=== PATIENT | female | born 1960 | race Caucasian/White ===

== ENCOUNTER 2016-06-16 08:18 | Emergency (ER) | payer BC, OTHER ==
[2016-06-16 08:30] VITALS: BP 132/74; PULSE 87; TEMP 98.2; BMI 32.6
[2016-06-16] MEDS ORDERED: CYCLOBENZAPRINE HCL 10 MG TABLET (FP) PO ONE (09:18)
[2016-06-16] MEDS ORDERED: KETOROLAC TROMETHAMINE 60 MG/2 ML VIAL IM ONE (09:18)
[2016-06-16 09:20] LABS: URINE APPEARANCE CLEAR; URINE BILIRUBIN NEGATIVE (NEGATIVE); URINE BLOOD NEGATIVE (NEGATIVE); URINE COLOR YELLOW; URINE GLUCOSE (UA) NEGATIVE (NEGATIVE); URINE KETONE NEGATIVE (NEGATIVE); URINE LEUK ESTERASE NEGATIVE (NEGATIVE); URINE NITRITE NEGATIVE (NEGATIVE); URINE PROTEIN NEGATIVE (NEGATIVE); URINE UROBILINOGEN NEGATIVE E.U./dl (0.2-1.0)
--- NOTE | 2016-06-16 09:23 | PDOC ---
History of Present Illness - General Chief Complaint: Back Pain Stated Complaint: BACK PAIN Time Seen by Provider: 06/16/16 08:40 History Source: Patient Exam Limitations: No Limitations - History of Present Illness Initial Comments: 06/16/16 09:19 Patient states started a jog routine last weekend, with acute onset of pain in her low back the following day. States pain radiates across lower back and buttocks area. Denies any fall, any other changes however states jog for one half hour. Denies numbness or tingling to hand, no fevers, no problems with bowel or bladder. Used ibuprofen only for pain relief Occurred: reports: last week Severity: reports: mild, moderate Pain Location: reports: back Method of Injury: Yes: other Past History - Travel Traveled outside of the country in the last 30 days: No Close contact w/someone who was outside of country & ill: No - Past Medical History Allergies/Adverse Reactions: Allergies Allergy/AdvReac Type Severity Reaction Status Date / Time No Known Allergies Allergy Verified 06/16/16 08:30 Home Medications: Ambulatory Orders Cyclobenzaprine HCl [Flexeril 10 mg] 10 mg PO BID PRN #14 tablet 06/16/16 Anemia: No Asthma: No Cancer: No Cardiac Disorders: No CVA: No COPD: No CHF: No Dementia: No Diabetes: No GI Disorders: No Disorders: No HTN: No Hypercholesterolemia: Yes Liver Disease: No Seizures: No Thyroid Disease: No - Surgical History Abdominal Surgery: No Appendectomy: No Cardiac Surgery: No Cholecystectomy: No Lung Surgery: No Neurologic Surgery: No Orthopedic Surgery: No - Psycho/Social/Smoking Cessation Hx Anxiety: No Suicidal Ideation: No Smoking History: Never smoked Have you smoked in the past 12 months: No Information on smoking cessation initiated: No Hx Alcohol Use: No Drug/Substance Use Hx: No Substance Use Type: None Trauma Specific PMHX - Complaint Specific PMHX Back Injury: Yes Neck Injury: No Review of Systems - Review of Systems Able to Perform ROS?: Yes Is the patient limited Swedish proficient: Yes Constitutional: Yes: Symptoms Reported, See HPI, Malaise. No: Fever HEENTM: No: Symptoms Reported Respiratory: No: Symptoms reported Musculoskeletal: Yes: Symptoms Reported, See HPI, Back Pain, Muscle Pain ( gluteus bilateral) Integumentary: No: Symptoms Reported All Other Systems: Reviewed and Negative *Physical Exam - Vital Signs Last Vital Signs Temp Pulse Resp BP Pulse Ox 98.2 F 87 18 132/74 98 06/16/16 08:29 06/16/16 08:29 06/16/16 08:29 06/16/16 08:29 06/16/16 08:29 - Physical Exam General Appearance: Yes: Nourished, Appropriately Dressed, Apparent Distress HEENT: positive: MIO, Normal ENT Inspection, TMs Normal, Pharynx Normal Neck: positive: Supple Respiratory/Chest: positive: Lungs Clear, Normal Breath Sounds Musculoskeletal: positive: Normal Inspection, Decreased Range of Motion (mild decreased range of motion, bending at waist reproduces pain in gluteus muscles, mild spasm noted to the paravertebral lumbar spinous area. No bone tenderness, and ambulatory but slowly. Neurovascular intact to feet bilaterally). negative : CVA Tenderness, Vertebral Tenderness Extremity: positive: Normal Capillary Refill, Normal Inspection Integumentary: positive: Normal Color, Dry, Warm Progress Note - Progress Note Progress Note: Low back strain, will treat with NSAIDs and cyclobenzaprine *DC/Admit/Observation/Transfer Diagnosis at time of Disposition: Strain of lumbar region Qualifiers: Encounter type: initial encounter Qualified Code(s): S39.012A - Strain of muscle, fascia and tendon of lower back, initial encounter - Discharge Dispostion Disposition: HOME Condition at time of disposition: Stable Admit: No - Patient Instructions Printed Discharge Instructions: DI for Gluteal Strain Additional Instructions: Rest, no heavy lifting or exercise until pain is resolved Hot soaks to neck and low back as often as possible/hot showers or Jacuzzis No massage or therapy until spasm is gone Continue ibuprofen 2-200 mg tablets every 6 hours for the next 3 days then as needed for pain and swelling Cyclobenzaprine 1-10mg every 8 hours as needed for spasm If not significant improvement within 24 hours with medication and rest regime, followup with private physician for change in medications and /or therapy. - Post Discharge Activity Work/School Note: Back to Work
[2016-06-16] MEDS ORDERED: CYCLOBENZAPRINE HCL 10 MG TABLET (FP) ONE (09:29)
[2016-06-16] MEDS ORDERED: KETOROLAC TROMETHAMINE 60 MG/2 ML VIAL ONE (09:29)
== END 2016-06-16 09:35 | disposition home or self-care (01) ==
LOC: JERFT 08:18
PROC: 3E0233Z Introduction of Anti-inflammatory into Muscle, Percutaneous Approach (ICD-10-PCS; principal; 2016-06-16)
DX: S39.012A Strain of muscle, fascia and tendon of lower back, initial encounter (principal); X50.0XXA Overexertion from strenuous movement or load, initial encounter; X50.3XXA Overexertion from repetitive movements, initial encounter; Y93.02 Activity, running; Y92.89 Other specified places as the place of occurrence of the external cause; Y99.8 Other external cause status
CPT/HCPCS: 81003; 99281-25

== ENCOUNTER 2016-11-02 08:57 | Emergency (ER) | payer BC, OTHER ==
[2016-11-02 09:01] VITALS: BP 126/86; PULSE 100; TEMP 98.1; BMI 32.2
[2016-11-02] MEDS ORDERED: KETOROLAC TROMETHAMINE 60 MG/2 ML VIAL IM ONE (09:39)
[2016-11-02] MEDS ORDERED: KETOROLAC TROMETHAMINE 60 MG/2 ML VIAL ONE (09:42)
--- NOTE | 2016-11-02 10:32 | PDOC ---
History of Present Illness - General Chief Complaint: Back Pain Stated Complaint: BACK PAIN Time Seen by Provider: 11/02/16 09:17 History Source: Patient Exam Limitations: No Limitations - History of Present Illness Initial Comments: 11/02/16 10:25 CHIEF COMPLAINT: Lower back pain HISTORY OF PRESENT ILLNESS: 56-year-old female, history of low back pain presents for recurrent left lower back pain nonradiating , no neurosensory deficits, no bowel or bladder difficulty incontinence or urinary retention, no saddle anesthesia, no footdrop. No history of IVDU or history of cancer. Came to the emergency department because she received an injection last time in June when she was seen for the same pain, pain resolved after injection, did not follow-up . REVIEW OF SYSTEMS: GENERAL: Afebrile, denies any weakness RESPIRATORY: No cough, wheezing, or hemoptysis. CARDIAC: No chest pain or shortness of breath MUSCULOSKELETAL: Pain to generalized lower back. No point tenderness. Pain worse on left and right SKIN : No erythema, no bruising, no deformity. GI/: Denies any abdominal pain, no urinary difficulty, incontinence or urinary retention. RECTAL: Denies any difficulty this A.m. NEUROLOGICAL: Denies any numbness or tingling. No neurosensory deficits. PHYSICAL EXAM: GENERAL: The patient is awake, alert, and fully oriented, in no acute distress. RESPIRATORY: Lungs clear bilaterally, no rhonchi wheezes or crackles CARDIAC: S1-S2 audible, no murmur rub or gallop MUSCULOSKELETAL: Pain to generalized lower back, nonradiating, no tingling or sensory deficit. Less than 2 second cap refill, +4 popliteal and pedal pulses. GI/: Abdomen soft, nontender, nondistended. No rebound tenderness. No masses palpable. MUSCULOSKELETAL: No spinal point tenderness. Normal reflexive and no deficits to sensation or strength. Pain to left lateral lower back RECTAL: Deferred patient with no neurological findings SKIN: Warm, Dry, normal turgor, no erythema, no edema no bruising. 11/02/16 13:25 Past History - Past Medical History Allergies/Adverse Reactions: Allergies Allergy/AdvReac Type Severity Reaction Status Date / Time No Known Allergies Allergy Verified 11/02/16 09:01 Home Medications: Ambulatory Orders Cyclobenzaprine HCl [Flexeril 10 mg] 10 mg PO BID PRN #20 tablet MDD 2 11/02/16 Naproxen [Naprosyn -] 500 mg PO BID #28 tablet 11/02/16 Anemia: No Asthma: No Cancer: No Cardiac Disorders: No CVA: No COPD: No CHF: No Dementia: No Diabetes: No GI Disorders: No Disorders: No HTN: Yes Hypercholesterolemia: Yes Liver Disease: No Seizures: No Thyroid Disease: No - Surgical History Abdominal Surgery: No Appendectomy: No Cardiac Surgery: No Cholecystectomy: No Lung Surgery: No Neurologic Surgery: No Orthopedic Surgery: No - Suicide/Smoking/Psychosocial Hx Smoking History: Never smoked Have you smoked in the past 12 months: No Hx Alcohol Use: Yes (SOCIAL) Drug/Substance Use Hx: No Substance Use Type: None Trauma Specific PMHX - Complaint Specific PMHX Back Injury: Yes Neck Injury: No *Physical Exam - Vital Signs Last Vital Signs Temp Pulse Resp BP Pulse Ox 98.1 F 100 H 20 126/86 99 11/02/16 08:58 11/02/16 08:58 11/02/16 08:58 11/02/16 08:58 11/02/16 08:58 ED Treatment Course - Medications Given in the ED: ED Medications Discontinued Medications Generic Name Dose Route Start Last Admin Trade Name Freq PRN Reason Stop Dose Admin Ketorolac Tromethamine 60 mg 11/02/16 09:39 11/02/16 09:45 Toradol Injection - IM 11/02/16 09:40 60 mg ONCE ONE Administration Medical Decision Making - Medical Decision Making 11/02/16 10:32 A/P: Patient here for evaluation of left lateral lower back pain, paraspinal, patient with history of the same. Pain is nonradiating, denies any trauma, no neurosensory deficits, no saddle anesthesia, no footdrop. Patient given Toradol 60 mg IM with resolve of symptoms told she needs to follow up because of recurrence of same pain. She verbalized understanding will follow-up with orthopedics will DC patient home on Naprosyn and Flexeril, strict follow-up. I discussed the physical exam findings, ancillary test results and final diagnoses with the patient. I answered all of the patient's questions. The patient was satisfied with the care received and felt comfortable with the discharge plan and treatment plan. The patient will call to arrange follow-up and will return to the Emergency Department with any new, persistent or worsening symptoms. 11/02/16 13:26 *DC/Admit/Observation/Transfer Diagnosis at time of Disposition: Low back strain Qualifiers: Encounter type: subsequent encounter Qualified Code(s): S39.012D - Strain of muscle, fascia and tendon of lower back, subsequent encounter - Discharge Dispostion Disposition: HOME Condition at time of disposition: Good Admit: No - Prescriptions Prescriptions: Cyclobenzaprine HCl [Flexeril 10 mg] 10 mg PO BID PRN #20 tablet MDD 2 PRN Reason: Pain Naproxen [Naprosyn -] 500 mg PO BID #28 tablet - Referrals Referrals: Dominik Washington PA [Primary Care Provider] - Pal Bermudez MD [Staff Physician] - Shaw Emerson MD [Staff Physician] - - Post Discharge Activity Forms/Work/School Notes: Back to Work
== END 2016-11-02 10:37 | disposition home or self-care (01) ==
LOC: JERFT 08:57
PROC: 3E0233Z Introduction of Anti-inflammatory into Muscle, Percutaneous Approach (ICD-10-PCS; principal; 2016-11-02)
DX: S39.012D Strain of muscle, fascia and tendon of lower back, subsequent encounter (principal); M54.5 Low back pain; X58.XXXA Exposure to other specified factors, initial encounter; Y93.89 Activity, other specified; Y92.9 Unspecified place or not applicable
CPT/HCPCS: 99281-25

== ENCOUNTER 2018-04-19 09:09 | Emergency (ER) | payer BC, OTHER ==
[2018-04-19 09:17] VITALS: BP 125/76; PULSE 98; TEMP 97.7; BMI 32.6
--- NOTE | 2018-04-19 09:49 | PDOC ---
History of Present Illness - General Chief Complaint: Urinary Problem Stated Complaint: URINE ISSUE Time Seen by Provider: 04/19/18 09:20 History Source: Patient Exam Limitations: Clinical Condition - History of Present Illness Initial Comments: 04/19/18 09:44 Patient with no significant past medical history present with complaint of urinary frequency, dysuria, burning with urination and blood-tinged urine since yesterday. Patient denies nausea, vomiting, fever, chills back pains. Patient reported mild suprapubic discomfort since yesterday. Timing/Duration: 24 hours Past History - Past Medical History Allergies/Adverse Reactions: Allergies Allergy/AdvReac Type Severity Reaction Status Date / Time No Known Allergies Allergy Verified 04/19/18 09:13 Home Medications: Ambulatory Orders Ciprofloxacin HCl [Cipro] 500 mg PO BID 5 Days #10 tablet 04/19/18 Phenazopyridine HCl [Pyridium -] 100 mg PO TID 2 Days #6 tablet 04/19/18 Anemia: No Asthma: No Cancer: No Cardiac Disorders: No CVA: No COPD: No CHF: No Dementia: No Diabetes: No GI Disorders: No Disorders: No HTN: Yes Hypercholesterolemia: Yes Liver Disease: No Seizures: No Thyroid Disease: No - Surgical History Abdominal Surgery: No Appendectomy: No Cardiac Surgery: No Cholecystectomy: No Lung Surgery: No Neurologic Surgery: No Orthopedic Surgery: No - Immunization History Immunization Up to Date: Yes - Suicide/Smoking/Psychosocial Hx Smoking History: Never smoked Have you smoked in the past 12 months: No Hx Alcohol Use: Yes Drug/Substance Use Hx: No Substance Use Type: None Review of Systems - Review of Systems Able to Perform ROS?: Yes Is the patient limited Danish proficient: No Constitutional: No: Chills, Fever HEENTM: No: Symptoms Reported Respiratory: No: Symptoms reported Cardiac (ROS): No: Symptoms Reported ABD/GI: Yes: See HPI, Abdominal cramping (suprapubic pressure). No: Constipated , Diarrhea, Nausea, Vomiting : Yes: See HPI, Burning, Dysuria, Frequency, Hematuria, Urgency. No: Discharge, Flank Pain, Incontinence Musculoskeletal: No: Back Pain All Other Systems: Reviewed and Negative *Physical Exam - Vital Signs Last Vital Signs Temp Pulse Resp BP Pulse Ox 97.7 F 98 H 18 125/76 100 04/19/18 09:14 04/19/18 09:14 04/19/18 09:14 04/19/18 09:14 04/19/18 09:14 - Physical Exam General Appearance: Yes: Nourished, Appropriately Dressed. No: Apparent Distress HEENT: positive: Normal ENT Inspection Neck: positive: Supple Respiratory/Chest: positive: Lungs Clear, Normal Breath Sounds. negative: Respiratory Distress, Accessory Muscle Use Cardiovascular: positive: Regular Rhythm, Regular Rate Gastrointestinal/Abdominal: positive: Flat, Soft. negative: Tender, Organomegaly Musculoskeletal: positive: Normal Inspection. negative: CVA Tenderness Neurologic: positive: Fully Oriented, Alert Moderate Sedation - Procedure Monitoring Vital Signs: Procedure Monitoring Vital Signs Temperature 97.7 F 04/19/18 09:14 Pulse Rate 98 H 04/19/18 09:14 Respiratory Rate 18 04/19/18 09:14 Blood Pressure 125/76 04/19/18 09:14 O2 Sat by Pulse Oximetry (%) 100 04/19/18 09:14 Medical Decision Making - Medical Decision Making 04/19/18 09:46 Patient present with complaint of one day history of urinary frequency, dysuria , burning with urination and hematuria. No gross hematuria and urine sample. No CVA tenderness on exam. UA and urine culture ordered. Patient be discharged home on Cipro twice a day for 5 days and Pyridium with BOTTLE HOUSE QUALITY CONTROL TECHNICIAN follow-up. 04/19/18 10:37 Urinalysis shows positive leukocytes with wbc's patient be treated on Cipro for 5 days pending urine culture results. *DC/Admit/Observation/Transfer Diagnosis at time of Disposition: UTI (urinary tract infection) Qualifiers: Urinary tract infection type: site unspecified Hematuria presence: with hematuria Qualified Code(s): N39.0 - Urinary tract infection, site not specified - Discharge Dispostion Disposition: HOME Condition at time of disposition: Stable Decision to Admit order: No - Prescriptions Prescriptions: Ciprofloxacin HCl [Cipro] 500 mg PO BID 5 Days #10 tablet Phenazopyridine HCl [Pyridium -] 100 mg PO TID 2 Days #6 tablet - Referrals Referrals: Dominik Washington PA [Primary Care Provider] - - Patient Instructions Printed Discharge Instructions: DI for Urinary Tract Infection (UTI) Additional Instructions: Take medications as prescribed. Increase fluid intake and avoid frequent. Follow -up which BOTTLE HOUSE QUALITY CONTROL TECHNICIAN as needed. - Post Discharge Activity
[2018-04-19 10:02] LABS: URINE APPEARANCE CLOUDY; URINE BILIRUBIN NEGATIVE (<2.0 mg/dL); URINE COLOR YELLOW; URINE GLUCOSE (UA) NEGATIVE (NEGATIVE); URINE KETONE NEGATIVE (NEGATIVE); URINE LEUK ESTERASE 2+ (NEGATIVE); URINE NITRITE NEGATIVE (NEGATIVE); URINE PROTEIN 1+ (NEGATIVE)
[2018-04-19 10:35] LABS: EPI CELLS RARE /HPF (FEW); URINE BACTERIA RARE /hpf (NONE SEEN); URINE MUCUS RARE
== END 2018-04-19 10:42 | disposition home or self-care (01) ==
LOC: JERFT 09:09
DX: N39.0 Urinary tract infection, site not specified (principal)
CPT/HCPCS: 81003; 81015; 87086; 87186; 99281-25

== ENCOUNTER 2018-05-28 07:46 | Emergency (ER) | payer BC, OTHER ==
[2018-05-28 07:51] VITALS: TEMP 98.2; BMI 32.5
--- NOTE | 2018-05-28 08:16 | PDOC ---
History of Present Illness - General Chief Complaint: Lightheaded Stated Complaint: WEAKNESS,DIZZINESS Time Seen by Provider: 05/28/18 07:53 - History of Present Illness Initial Comments: 05/28/18 10:05 58f with borderline htn and hld presents with 1min-long episode of dizziness 45min before presentation. She describes seeing black after standing up and feeling like she was going to pass out. After the minute passed she felt some lingering mild dizziness. Denies chest pain, headache, sob, diaphoresis, cough, or dysuria. She was given a liter NS Bolus by EMS. 05/28/18 10:10 Had milder episodes like these in the past. Past History - Past Medical History Allergies/Adverse Reactions: Allergies Allergy/AdvReac Type Severity Reaction Status Date / Time No Known Allergies Allergy Verified 05/28/18 07:51 Home Medications: Ambulatory Orders Ciprofloxacin HCl [Cipro] 500 mg PO BID 5 Days #10 tablet 04/19/18 Phenazopyridine HCl [Pyridium -] 100 mg PO TID 2 Days #6 tablet 04/19/18 Anemia: No Asthma: No Cancer: No Cardiac Disorders: No CVA: No COPD: No CHF: No Dementia: No Diabetes: No GI Disorders: No Disorders: No HTN: Yes Hypercholesterolemia: Yes Liver Disease: No Seizures: No Thyroid Disease: No - Surgical History Abdominal Surgery: No Appendectomy: No Cardiac Surgery: No Cholecystectomy: No Lung Surgery: No Neurologic Surgery: No Orthopedic Surgery: No - Immunization History Immunization Up to Date: Yes - Suicide/Smoking/Psychosocial Hx Smoking History: Current every day smoker Have you smoked in the past 12 months: No Information on smoking cessation initiated: No Hx Alcohol Use: No Drug/Substance Use Hx: No Substance Use Type: None Cardiac Specific PMH - Complaint Specific PMHX Pacemaker: No Review of Systems - Review of Systems Able to Perform ROS?: Yes Is the patient limited Hungarian proficient: No Constitutional: No: Symptoms Reported HEENTM: Yes: See HPI Respiratory: No: Symptoms reported Cardiac (ROS): No: Symptoms Reported ABD/GI: No: Symptoms Reported : No: Symptoms Reported Musculoskeletal: No: Symptoms Reported Integumentary: No: Symptoms Reported Neurological: Yes: See HPI All Other Systems: Reviewed and Negative *Physical Exam - Vital Signs Last Vital Signs Temp Pulse Resp BP Pulse Ox 98.2 F 76 16 114/70 100 05/28/18 07:49 05/28/18 10:17 05/28/18 07:49 05/28/18 10:17 05/28/18 07:49 - Physical Exam General Appearance: Yes: Nourished, Appropriately Dressed. No: Apparent Distress HEENT: positive: EOMI, MIO, Normal ENT Inspection Respiratory/Chest: positive: Lungs Clear, Normal Breath Sounds. negative: Chest Tender, Respiratory Distress Cardiovascular: positive: Regular Rhythm, Regular Rate, S1, S2 Gastrointestinal/Abdominal: positive: Normal Bowel Sounds, Flat, Soft. negative : Tender Extremity: positive: Normal Capillary Refill, Normal Inspection, Normal Range of Motion Integumentary: positive: Normal Color, Dry, Warm Neurologic: positive: Fully Oriented, Alert, Normal Mood/Affect, Normal Response , Motor Strength 06/17 ED Treatment Course - LABORATORY CBC & Chemistry Diagram: 05/28/18 09:02 05/28/18 09:02 - ADDITIONAL ORDERS Additional order review: Laboratory Results 05/28/18 05/28/18 05/28/18 12:19 09:23 09:02 Sodium 143 Potassium 4.0 Chloride 110 H Carbon Dioxide 26 Anion Gap 7 L BUN 15 Creatinine 0.9 Creat Clearance w eGFR 64.54 Random Glucose 107 H Calcium 8.6 Total Bilirubin 0.4 AST 18 ALT 20 Alkaline Phosphatase 73 Troponin I < 0.02 < 0.02 Total Protein 7.0 Albumin 3.7 TSH 1.61 Urine Color Yellow Urine Appearance Clear Urine pH 5.5 Ur Specific [place] 1.006 L Urine Protein Negative Urine Glucose (UA) Negative Urine Ketones Negative Urine Blood Negative Urine Nitrite Negative Urine Bilirubin Negative Urine Urobilinogen 0.2 Ur Leukocyte Esterase Negative 05/28/18 09:02 RBC 5.11 MCV 80.1 MCHC 32.1 RDW 14.0 MPV 9.6 Neutrophils % 70.3 Lymphocytes % 20.1 Monocytes % 7.6 Eosinophils % 1.2 Basophils % 0.8 - Medications Given in the ED: ED Medications Discontinued Medications Generic Name Dose Route Start Last Admin Trade Name Freq PRN Reason Stop Dose Admin Sodium Chloride 1,000 mls @ 1,000 mls/hr 05/28/18 09:35 05/28/18 09:41 Normal Saline - IV 05/28/18 10:34 1,000 mls/hr ASDIR STA Administration Medical Decision Making - Medical Decision Making 05/28/18 10:11 Vasovagal vs mi vs orthostatic hypotension - Will first r/o NE with 2 set of trops and EKG. EKG: Normal sinus rythm. Low voltage QRS. - Will obtain orthostatic vitals...Negative orthostatics. 05/28/18 10:36 05/28/18 11:52 Second trops pending, will discharge if negative. 05/28/18 12:58 Second troponin negative. Reassess and discharge. *DC/Admit/Observation/Transfer Diagnosis at time of Disposition: Dizziness, Pre-syncope - Discharge Dispostion Disposition: HOME Condition at time of disposition: Improved Decision to Admit order: No - Referrals Referrals: Dominik Washington PA [Primary Care Provider] - Darren Meeks MD [Staff Physician] - Pablo Doll MD [Staff Physician] - - Patient Instructions Printed Discharge Instructions: Fainting Additional Instructions: Follow up with the cut off saw operator pipe blanks and neurologist providers within the week. Come back to the emergency department for any new, worsening or concerning symptom. Print Language: URDU - Post Discharge Activity
[2018-05-28 09:08] LABS: BASO % 0.8 % (0-2.0); EOS % 1.2 % (0-4.5); HEMATOCRIT 40.9 % (32.4-45.2); HEMOGLOBIN 13.1 GM/dL (10.7-15.3); LYMPH % 20.1 % (8-40); MCH 25.7 pg (25.7-33.7); MCHC 32.1 g/dl (32.0-36.0); MEAN CELL VOLUME 80.1 fl (80-96); MEAN PLT VOLUME 9.6 fl (7.5-11.1); MONO % 7.6 % (3.8-10.2); NEUT % 70.3 % (42.8-82.8); PLATELET COUNT 224 K/MM3 (134-434); RBC 5.11 M/mm3 (3.60-5.2); WHITE BLOOD COUNT 6.2 K/mm3 (4.0-10.0)
[2018-05-28 09:35] LABS: PH,URINE 5.5 (5.0-8.0); URINE APPEARANCE CLEAR; URINE BILIRUBIN NEGATIVE (NEGATIVE); URINE COLOR YELLOW; URINE GLUCOSE (UA) NEGATIVE (NEGATIVE); URINE KETONE NEGATIVE (NEGATIVE); URINE LEUK ESTERASE NEGATIVE (NEGATIVE); URINE NITRITE NEGATIVE (NEGATIVE); URINE PROTEIN NEGATIVE (NEGATIVE); URINE UROBILINOGEN 0.2 mg/dL (0.2-1.0)
[2018-05-28] MEDS ORDERED: SODIUM CHLORIDE 1,000 ML IV STA (09:35)
[2018-05-28 09:49] LABS: ALBUMIN 3.7 g/dl (3.4-5.0); ALK PHOS 73 U/L (45-117); ANION GAP 7 MMOL/L (8-16); BILIRUBIN,TOTAL 0.4 mg/dL (0.2-1); BLOOD UREA NITROGEN 15 mg/dL (7-18); CALCIUM 8.6 mg/dL (8.5-10.1); CHLORIDE 110 mmol/L (98-107); CO2 26 mmol/L (21-32); CREATININE 0.9 mg/dL (0.55-1.3); GLUCOSE,RANDOM 107 mg/dL (74-106); SGOT/AST 18 U/L (15-37); SGPT/ALT 20 U/L (13-61); SODIUM 143 mmol/L (136-145)
[2018-05-28 10:18] VITALS: BP 114/70; PULSE 76
--- NOTE | 2018-05-28 10:19 | PDOC ---
Attending Attestation - Resident Resident Name: Carlo Cruz - ED Attending Attestation I have performed the following: I have examined & evaluated the patient, The case was reviewed & discussed with the resident, I agree w/resident's findings & plan, Exceptions are as noted - HPI HPI: 05/28/18 10:09 58 F with h/o HTN presents to ED with lightheadedness. Pt states that this morning shortly after getting out of bed, she began to feel her vision darken. Pt denies LOC but states that she felt very dizzy. Pt denies any room-spinning sensation but states she felt like she was going to pass out. Denies any CP or palpitations. Endorses mild SOB that has since resolved. Denies leg swelling. No recent travel/immobilization. - Physicial Exam PE: 05/28/18 10:19 GENERAL: Awake, alert, and fully oriented, in no acute distress. HEAD: No signs of trauma EYES: PERRLA, EOMI, sclera anicteric, conjunctiva clear ENT: Auricles normal inspection, hearing grossly normal, nares patent, oropharynx clear without exudates. Moist mucosa NECK: Nontender, no stepoffs, Normal ROM, supple, no lymphadenopathy, JVD, or masses LUNGS: Breath sounds equal, clear to auscultation bilaterally. No wheezes, and no crackles HEART: Regular rate and rhythm, normal S1 and S2, no murmurs, rubs or gallops ABDOMEN: Soft, nontender, normoactive bowel sounds. No guarding, no rebound. No masses EXTREMITIES: Normal range of motion, no edema. No clubbing or cyanosis. No cords, erythema, or tenderness NEUROLOGICAL: Cranial nerves II through XII intact. 5/5 strength and sensation in all extremities, Normal speech, normal gait, normal cerebellar function SKIN: Warm, Dry, normal turgor, no rashes or lesions noted. - Medical Decision Making 05/28/18 10:19 58 F with pre-syncope. Pt with normal EKG, no evidence of arrhythmia. Possible orthostatic hypotension. Will r/o ACS with serial trops. Pt with no PE risk factors or clinical signs of DVT, making PE unlikely. - Labs, trop - IVF bolus 05/28/18 12:44 Labs wnl 2nd trop pending 05/28/18 12:58 trop negative x2 Pt is well appearing, with normal vitals. Clinically stable for DC at this time. I discussed the physical exam findings, ancillary test results and final diagnoses with the patient. I answered all of the patient's questions. The patient was satisfied with the care received and felt comfortable with the discharge plan and treatment plan. The patient agrees to follow up with the primary care physician within 24-72 hours.
--- NOTE | 2018-05-28 10:26 | EKG ---
Test Reason : Blood Pressure : / mmHG Vent. Rate : 083 BPM Atrial Rate : 083 BPM P-R Int : 150 ms QRS Dur : 086 ms QT Int : 388 ms P-R-T Axes : 052 -18 041 degrees QTc Int : 455 ms NORMAL SINUS RHYTHM LOW VOLTAGE QRS BORDERLINE ECG NO PREVIOUS ECGS AVAILABLE Confirmed by YOLA KNOX MD ([id number]) on 05/28/2018 10:25:39 AM Referred By: Confirmed By:YOLA KNOX MD
== END 2018-05-28 13:19 | disposition home or self-care (01) ==
LOC: JER 07:46
PROC: 3E0337Z Introduction of Electrolytic and Water Balance Substance into Peripheral Vein, Percutaneous Approach (ICD-10-PCS; principal; 2018-05-28)
DX: R55 Syncope and collapse (principal); R42 Dizziness and giddiness; I10 Essential (primary) hypertension
CPT/HCPCS: 36415; 80053; 81003; 84443; 84484; 85025; 93005; 93010; 99284-25; J7030

== ENCOUNTER 2020-01-31 12:39 | Observation (INO) | payer BC, OTHER ==
[2020-01-31] MEDS ORDERED: ASCORBIC ACID 500 MG TABLET (FP) ONE (13:32)
[2020-01-31] MEDS ORDERED: ASPIRIN COATED 81 MG TABLET.EC ONE (13:33)
[2020-01-31] MEDS ORDERED: DEXAMETHASONE SOD PHOSPHATE 10 MG/1 ML VIAL ONE (13:33)
[2020-01-31] MEDS ORDERED: ALBUTEROL SO4 HFA INHALER IH ONE (13:33)
[2020-01-31] MEDS ORDERED: FAMOTIDINE 20 MG TABLET ONE (13:34)
[2020-01-31] MEDS ORDERED: lamoTRIgine 100 MG TABLET ONE (13:34)
[2020-01-31] MEDS ORDERED: ZINC SULFATE 220 MG CAPSULE (FP) ONE (13:34)
[2020-01-31] MEDS ORDERED: HYDROXYCHLOROQUINE SO4 200 MG TABLET (FP) PO ONE (13:35)
[2020-01-31] MEDS ORDERED: ENOXAPARIN NA (PORCINE) 40 MG/0.4 ML DISP.SYRIN SQ ONE (13:35)
[2020-01-31] MEDS ORDERED: CEFTRIAXONE 1 GM/50 ML BAG ONE (13:35)
[2020-01-31] MEDS ORDERED: CHOLECALCIFEROL (VIT D3) 1,000 UNIT (25 MCG) TABLET ONE (13:35)
[2020-01-31 14:32] LABS: BASO % 0.9 % (0-2.0); EOS % 0.8 % (0-4.5); HEMATOCRIT 46.1 % (32.4-45.2); HEMOGLOBIN 14.7 GM/dL (10.7-15.3); LYMPH % 19.8 % (8-40); MCH 25.3 pg (25.7-33.7); MCHC 31.8 g/dl (32.0-36.0); MEAN CELL VOLUME 79.6 fl (80-96); MEAN PLT VOLUME 10.1 fl (7.5-11.1); MONO % 5.6 % (3.8-10.2); NEUT % 72.9 % (42.8-82.8); PLATELET COUNT 290 K/MM3 (134-434); RBC 5.79 M/mm3 (3.60-5.2); RDW 14.3 % (11.6-15.6); WHITE BLOOD COUNT 9.3 K/mm3 (4.0-10.0)
[2020-01-31 14:57] LABS: CHLORIDE 104 mmol/L (98-107); POTASSIUM 4.2 mmol/L (3.5-5.1); SODIUM 141 mmol/L (136-145)
[2020-01-31 14:59] LABS: CALCIUM 9.6 mg/dL (8.5-10.1)
[2020-01-31 15:00] LABS: ALBUMIN 4.3 g/dl (3.4-5.0); ANION GAP 9 MMOL/L (8-16); BLOOD UREA NITROGEN 10.1 mg/dL (7-18); CO2 28 mmol/L (21-32); GLUCOSE,RANDOM 102 mg/dL (74-106)
[2020-01-31 15:03] LABS: CREATININE 0.9 mg/dL (0.55-1.3); SGOT/AST 22 U/L (15-37); SGPT/ALT 22 U/L (13-61)
[2020-01-31 15:04] LABS: BILIRUBIN,TOTAL 0.4 mg/dL (0.2-1)
[2020-01-31 15:05] LABS: TOT PROT 8.2 g/dl (6.4-8.2)
[2020-01-31 15:06] LABS: ALK PHOS 85 U/L (45-117)
[2020-01-31 15:11] LABS: PH,URINE 7.5 (5.0-8.0); URINE APPEARANCE CLEAR; URINE BILIRUBIN NEGATIVE (NEGATIVE); URINE COLOR YELLOW; URINE GLUCOSE (UA) NEGATIVE (NEGATIVE); URINE KETONE NEGATIVE (NEGATIVE); URINE LEUK ESTERASE NEGATIVE (NEGATIVE); URINE NITRITE NEGATIVE (NEGATIVE); URINE PROTEIN NEGATIVE (NEGATIVE); URINE UROBILINOGEN 0.2 mg/dL (0.2-1.0)
[2020-01-31] MEDS ORDERED: ATORVASTATIN CA 20 MG TABLET (FP) PO SCH (22:00)
[2020-01-31] MEDS ORDERED: ATORVASTATIN CA 20 MG TABLET (FP) ONE (22:06)
[2020-02-01 03:56] VITALS: BMI 35.9
[2020-02-01] MEDS ORDERED: ENOXAPARIN NA (PORCINE) 40 MG/0.4 ML DISP.SYRIN SQ SCH (10:00)
[2020-02-01] MEDS ORDERED: ASPIRIN 81 MG CHEWABLE TABLETS PO SCH (10:00)
[2020-02-01] MEDS ORDERED: amLODIPine BESYLATE 5 MG TABLET (FP) PO SCH (10:00)
[2020-02-01] MEDS ORDERED: TRIAMTERENE AND HCTZ - 37.5 MG/25 MG CAPSULE PO SCH (10:00)
[2020-02-01] MEDS ORDERED: PT OWN MED DRAWER 7, Y5N ONE ×2 (10:23→13:54)
[2020-02-01 13:45] VITALS: BP 112/64; PULSE 72; TEMP 97.7
[2020-02-01 14:02] LABS: CHOLESTEROL 250 mg/dL (50-200); TRIGLYCERIDES 84 mg/dL (0-150)
[2020-02-01 14:03] LABS: LDL CHOLESTEROL (ONLY SJRH) 161 mg/dL (5-100)
[2020-02-01 14:05] LABS: HDL CHOLESTEROL 74 mg/dL (40-60)
== END 2020-02-01 18:20 | disposition home or self-care (01) ==
LOC: JER 12:39 → JERBED 17:25 → J4W 02-01 02:25
PROVIDERS: ADMIT Internal Medicine; ATTEND Student in an Organized Health Care Education/Training Program
PROC: 3E023GC Introduction of Other Therapeutic Substance into Muscle, Percutaneous Approach (ICD-10-PCS; principal; 2020-01-31)
DX: R07.89 Other chest pain (principal); I10 Essential (primary) hypertension; E78.5 Hyperlipidemia, unspecified; R55 Syncope and collapse; Z87.891 Personal history of nicotine dependence; F41.9 Anxiety disorder, unspecified; R42 Dizziness and giddiness; Z29.9 Encounter for prophylactic measures, unspecified
CPT/HCPCS: 36415; 70450-TC; 71045-TC-FY; 80053; 80061; 81003; 82550; 82962; 83036; 83721; 84484; 85025; 87086; 93005; 93010; 99285-25; C9803; G0378; U0003

== ENCOUNTER 2020-02-21 20:37 | Emergency (ER) | payer BC, OTHER ==
[2020-02-21 20:50] VITALS: BMI 34.5
[2020-02-21] MEDS ORDERED: SODIUM CHLORIDE 0.9% 500 ML INFUS.BAG IV ONE (21:18)
[2020-02-21] MEDS ORDERED: BAMLANIVIMAB 700 MG in SODIUM CHLORIDE 180 ML IVPB ONE (21:53)
[2020-02-21 22:14] LABS: BASO % 0.5 % (0-2.0); EOS % 0.9 % (0-4.5); HEMATOCRIT 45.1 % (32.4-45.2); HEMOGLOBIN 14.7 GM/dL (10.7-15.3); LYMPH % 31.3 % (8-40); MCH 25.7 pg (25.7-33.7); MCHC 32.7 g/dl (32.0-36.0); MEAN CELL VOLUME 78.7 fl (80-96); MEAN PLT VOLUME 9.1 fl (7.5-11.1); MONO % 8.7 % (3.8-10.2); NEUT % 58.6 % (42.8-82.8); PLATELET COUNT 265 K/MM3 (134-434); RBC 5.73 M/mm3 (3.60-5.2); RDW 14.2 % (11.6-15.6); WHITE BLOOD COUNT 6.6 K/mm3 (4.0-10.0)
[2020-02-21 22:34] LABS: CHLORIDE 103 mmol/L (98-107); SODIUM 137 mmol/L (136-145)
[2020-02-21 22:36] LABS: CALCIUM 9.2 mg/dL (8.5-10.1)
[2020-02-21 22:37] LABS: ANION GAP 5 MMOL/L (8-16); BLOOD UREA NITROGEN 10.7 mg/dL (7-18); CO2 30 mmol/L (21-32); GLUCOSE,RANDOM 119 mg/dL (74-106)
[2020-02-21 22:40] LABS: CREATININE 0.9 mg/dL (0.55-1.3); SGPT/ALT 34 U/L (13-61)
[2020-02-21 22:41] LABS: SGOT/AST 22 U/L (15-37)
[2020-02-21 22:42] LABS: ALK PHOS 82 U/L (45-117); BILIRUBIN,TOTAL 0.3 mg/dL (0.2-1); TOT PROT 7.6 g/dl (6.4-8.2)
[2020-02-21 22:44] LABS: LDH 270 U/L (84-246)
[2020-02-22 00:59] VITALS: BP 126/85; PULSE 75; TEMP 97.8
== END 2020-02-22 01:57 | disposition home or self-care (01) ==
LOC: JER 20:37
DX: U07.1 COVID-19 (principal); R53.1 Weakness; R05 Cough
CPT/HCPCS: 36415; 71046-TC-FY; 80053; 82550; 82728; 83615; 83735; 84484; 85025; 86140; 93005; 93010; 99285-25; M0239; Q0239

== ENCOUNTER 2020-09-02 10:48 | Emergency (ER) | payer BC, OTHER ==
[2020-09-02 11:06] VITALS: BMI 33.1
[2020-09-02] MEDS ORDERED: SODIUM CHLORIDE 1,000 ML IV STA (12:52)
[2020-09-02 13:22] LABS: BASO % 0.5 % (0-2.0); EOS % 0.6 % (0-4.5); HEMATOCRIT 42.6 % (32.4-45.2); HEMOGLOBIN 13.8 GM/dL (10.7-15.3); LYMPH % 16.3 % (8-40); MCH 25.4 pg (25.7-33.7); MCHC 32.5 g/dl (32.0-36.0); MEAN PLT VOLUME 9.3 fl (7.5-11.1); MONO % 7.2 % (3.8-10.2); NEUT % 75.4 % (42.8-82.8); PLATELET COUNT 268 10^3/uL (134-434); RBC 5.46 M/mm3 (3.60-5.2); RDW 14.5 % (11.6-15.6); WHITE BLOOD COUNT 7.9 K/mm3 (4.0-10.0)
[2020-09-02 13:24] LABS: PH,URINE 8.5 (5.0-8.0); URINE APPEARANCE CLEAR; URINE BILIRUBIN NEGATIVE (NEGATIVE); URINE COLOR YELLOW; URINE GLUCOSE (UA) NEGATIVE (NEGATIVE); URINE KETONE NEGATIVE (NEGATIVE); URINE LEUK ESTERASE NEGATIVE (NEGATIVE); URINE NITRITE NEGATIVE (NEGATIVE); URINE PROTEIN NEGATIVE (NEGATIVE); URINE UROBILINOGEN 0.2 mg/dL (0.2-1.0)
[2020-09-02 13:46] LABS: CHLORIDE 104 mmol/L (98-107); SODIUM 139 mmol/L (136-145)
[2020-09-02 13:47] LABS: ALBUMIN 4.1 g/dl (3.4-5.0); BLOOD UREA NITROGEN 14.5 mg/dL (7-18); CALCIUM 9.7 mg/dL (8.5-10.1)
[2020-09-02 13:49] LABS: ANION GAP 6 MMOL/L (8-16); CO2 30 mmol/L (21-32); GLUCOSE,RANDOM 102 mg/dL (74-106)
[2020-09-02 13:51] LABS: SGOT/AST 16 U/L (15-37); SGPT/ALT 20 U/L (13-61)
[2020-09-02 13:54] LABS: ALK PHOS 84 U/L (45-117); BILIRUBIN,TOTAL 0.6 mg/dL (0.2-1); TOT PROT 7.4 g/dl (6.4-8.2)
[2020-09-02 15:47] VITALS: BP 118/83; TEMP 98
[2020-09-06 20:12] VITALS: PULSE 82
== END 2020-09-02 16:01 | disposition home or self-care (01) ==
LOC: JER 10:48
PROC: 3E0337Z Introduction of Electrolytic and Water Balance Substance into Peripheral Vein, Percutaneous Approach (ICD-10-PCS; principal; 2020-09-02)
DX: R42 Dizziness and giddiness (principal); R53.1 Weakness; R00.0 Tachycardia, unspecified
CPT/HCPCS: 36415; 71046-TC-FY; 80053; 81003; 82550; 84443; 84484; 85025; 85379; 87086; 93005; 93010; 99285-25

== ENCOUNTER 2021-06-13 09:03 | Emergency (ER) | payer BC, OTHER ==
[2021-06-13 09:07] VITALS: BP 114/73; PULSE 115; TEMP 97.8; BMI 31.9
[2021-06-13] MEDS ORDERED: LIDOCAINE 5% TOPICAL PATCH TP ONE (09:33)
[2021-06-13] MEDS ORDERED: KETOROLAC TROMETHAMINE 30 MG/1 ML VIAL IM ONE (09:33)
[2021-06-13] MEDS ORDERED: diazePAM 2 MG TABLET PO ONE (09:33)
[2021-06-13] MEDS ORDERED: LIDOCAINE 5% TOPICAL PATCH ONE (10:06)
[2021-06-13] MEDS ORDERED: KETOROLAC TROMETHAMINE 30 MG/1 ML VIAL ONE (10:06)
[2021-06-13] MEDS ORDERED: diazePAM 5 MG TABLET ONE (10:06)
[2021-06-13] MEDS ORDERED: LIDOCAINE PATCH REMOVAL MC ONE (22:00)
== END 2021-06-13 10:25 | disposition home or self-care (01) ==
LOC: JER 09:03
PROC: 3E023GC Introduction of Other Therapeutic Substance into Muscle, Percutaneous Approach (ICD-10-PCS; principal; 2021-06-13)
DX: M54.2 Cervicalgia (principal); M54.50 Low back pain, unspecified; M79.602 Pain in left arm
CPT/HCPCS: 73030-TC-LT-FY; 73060-TC-LT-FY; 99284-25

== ENCOUNTER 2021-09-09 12:40 | Emergency (ER) | payer BC, OTHER ==
[2021-09-09 13:02] VITALS: BP 129/90; PULSE 125; RESP 20; TEMP 100.8; BMI 31.9
[2021-09-09] MEDS ORDERED: ACETAMINOPHEN 500 MG TABLET (FP) PO ONE (13:16)
[2021-09-09] MEDS ORDERED: ACETAMINOPHEN 500 MG TABLET (FP) ONE (13:36)
== END 2021-09-09 13:59 | disposition home or self-care (01) ==
LOC: JER 12:40
DX: J06.9 Acute upper respiratory infection, unspecified (principal)
CPT/HCPCS: 0241U-QW; 99283-25

== ENCOUNTER 2021-11-09 18:58 | Emergency (ER) | payer BC, OTHER ==
[2021-11-09 19:15] VITALS: BP 151/90; PULSE 80; RESP 16; TEMP 97.5; BMI 31.9
[2021-11-09] MEDS ORDERED: ASPIRIN 81 MG CHEWABLE TABLETS PO ONE (20:07)
[2021-11-09] MEDS ORDERED: MECLIZINE HCL 25 MG TABLET (FP) PO ONE (20:09)
[2021-11-09] MEDS ORDERED: ACETAMINOPHEN 1000 MG/100 ML BAG IVPB STA (20:24)
[2021-11-09] MEDS ORDERED: ASPIRIN 81 MG CHEWABLE TABLETS ONE (20:29)
[2021-11-09] MEDS ORDERED: MECLIZINE HCL 25 MG TABLET (FP) ONE (20:29)
[2021-11-09] MEDS ORDERED: ACETAMINOPHEN INJECTION 100 ML IVPB ONE (20:29)
[2021-11-09 21:42] LABS: BASO % 0.6 % (0-2.0); EOS % 2.4 % (0-4.5); HEMATOCRIT 41.6 % (32.4-45.2); HEMOGLOBIN 13.3 GM/dL (10.7-15.3); LYMPH % 30.7 % (8-40); MCH 25.5 pg (25.7-33.7); MEAN CELL VOLUME 79.6 fl (80-96); MEAN PLT VOLUME 9.4 fl (7.5-11.1); MONO % 8.5 % (3.8-10.2); NEUT % 57.8 % (42.8-82.8); PLATELET COUNT 286 10^3/uL (134-434); RBC 5.23 M/mm3 (3.60-5.2); RDW 14.7 % (11.6-15.6)
[2021-11-09 21:49] LABS: INR 0.95 (0.83-1.09); PROTHROMBIN TIME (PATIENT) 10.9 SEC (9.7-13.0)
[2021-11-09 21:51] LABS: ACTIVATED PTT 32.9 SECONDS (25.2-36.5)
[2021-11-09 21:59] LABS: CHLORIDE 103 mmol/L (98-107); SODIUM 142 mmol/L (136-145)
[2021-11-09 22:01] LABS: CALCIUM 9.9 mg/dL (8.5-10.1)
[2021-11-09 22:02] LABS: ALBUMIN 3.9 g/dl (3.4-5.0); ANION GAP 8 MMOL/L (8-16); BLOOD UREA NITROGEN 17.3 mg/dL (7-18); CO2 31 mmol/L (21-32); GLUCOSE,RANDOM 95 mg/dL (74-106); MAGNESIUM 2.3 mg/dL (1.8-2.4)
[2021-11-09 22:05] LABS: SGOT/AST 25 U/L (15-37); SGPT/ALT 23 U/L (13-61)
[2021-11-09 22:06] LABS: BILIRUBIN,TOTAL 0.4 mg/dL (0.2-1); TOT PROT 7.3 g/dl (6.4-8.2)
[2021-11-09 22:08] LABS: ALK PHOS 70 U/L (45-117)
== END 2021-11-10 01:03 | disposition home or self-care (01) ==
LOC: JER 18:58
PROC: 3E0333Z Introduction of Anti-inflammatory into Peripheral Vein, Percutaneous Approach (ICD-10-PCS; principal; 2021-11-09)
DX: R07.9 Chest pain, unspecified (principal); R55 Syncope and collapse
CPT/HCPCS: 36415; 70450-TC; 71045-TC-FY; 80053; 82550; 82553; 83735; 84484; 85025; 85610; 85730; 93005; 93010; 99285-25